=== PATIENT | female | born 1975 | race Asian ===

== ENCOUNTER 2023-09-04 09:18 | Emergency (ER) | payer OTHER ==
[~2023-09-04] VITALS: Ht 170.2 cm; Wt 72.6 kg
[2023-09-04 10:39] VITALS: BP 152/88; TEMP 98.3; O2SAT 98
== END 2023-09-04 10:40 | disposition home or self-care (01) ==
LOC: ER 09:21
DX: H53.8 Other visual disturbances (principal)
CPT/HCPCS: A4606; A4663